=== PATIENT | female | born 1990 | race Caucasian/White ===

== ENCOUNTER 2017-11-03 11:34 | Emergency (ER) | payer OTHER ==
[~2017-11-03] VITALS: Ht 154.9 cm; Wt 82.9 kg
[2017-11-03] MEDS ORDERED: CLINDAMYCIN HC300 MG PO (15:14)
[2017-11-03] MEDS ORDERED: LIDOCAINE20 MG/1 M5 PO (15:14)
[2017-11-03] MEDS ORDERED: INDOCIN50 MG PO (15:14)
[2017-11-03 15:26] VITALS: BP 130/82
== END 2017-11-03 15:27 | disposition home or self-care (01) ==
LOC: EME 11:34
DX: K02.9 Dental caries, unspecified (principal); R22.0 Localized swelling, mass and lump, head; K08.89 Other specified disorders of teeth and supporting structures; F17.200 Nicotine dependence, unspecified, uncomplicated; Z88.0 Allergy status to penicillin; Z88.5 Allergy status to narcotic agent; Z88.6 Allergy status to analgesic agent
CPT/HCPCS: 99281; 99283